=== PATIENT | female | born 1970 | race Caucasian/White ===

== ENCOUNTER 2023-03-22 11:40 | Emergency (ER) | payer OTHER, SELFPAY ==
[2023-03-22 11:48] VITALS: BP 159/107; PULSE 88; RESP 20; TEMP 36.8; O2SAT 98; BMI 39.2
--- NOTE | 2023-03-22 11:52 | XR_ITS ---
[address] [address] Patient Name: USMAN ZAMUDIO MRN: [id number] date: 1970 Sex: F Assigned Patient Location: ER Current Patient Location: Accession/Order Number: [id number] Exam Date: 03/22/2023 11:56 Report Date: 03/22/2023 12:27 At the request of: PRIMO HUNT Procedure: XR knee LT 3V EXAM: XR knee LT 3V INDICATION: fall. COMPARISON: None. TECHNIQUE: Left knee, 3 views FINDINGS: Changes of left knee arthroplasty with components in anatomic alignment. No periprosthetic fracture or findings of hardware loosening. Small suprapatellar joint effusion. Unremarkable soft tissues. IMPRESSION: No acute osseous abnormality. Intact left knee arthroplasty. Electronically authenticated by: MARCUS HICKMAN Date: 03/22/2023 12:27
--- NOTE | 2023-03-22 11:54 | ED.LOWEXI1 ---
HPI - Extremity Injury (Lower) General Chief Complaint: Extremity Injury, Lower Stated Complaint: LOWER EXTREMITY INJURY LEFT KNEE Time Seen by Provider: 03/22/23 11:48 Source: patient and family Mode of arrival: Wheelchair Limitations: no limitations History of Present Illness HPI Narrative: 52-year-old female presents for left knee pain she fell and her foot went out laterally. She has had a left knee replacement. She doesn't have pain in the hip or the ankle, just the knee. She didn't hit her head. This happened just before coming into the emergency department. Related Data Home Medications Medication Instructions Recorded Confirmed lisinopril 10 mg tablet 10 mg PO DAILY 03/22/23 03/22/23 Previous Rx's Medication Instructions Recorded acetaminophen 300 mg-codeine 30 mg 1 tab PO Q6H PRN pain #20 tabs 03/22/23 tablet ibuprofen 800 mg tablet 800 mg PO Q8H PRN pain #20 tabs 03/22/23 Allergies Allergy/AdvReac Type Severity Reaction Status Date / Time latex Allergy Intermediate Verified 03/22/23 11:51 Sulfa (Sulfonamide Allergy Intermediate Verified 03/22/23 11:51 Antibiotics) Review of Systems ROS Narrative A ten point review of systems is negative except as noted above. Exam Narrative Exam Narrative: Nurses note and vital signs reviewed and patient is not hypoxic. General: The patient appears well and in no apparent distress. Patient is resting comfortably on cart. Skin: Warm, dry, no pallor noted. There is no rash noted. Head: Normocephalic, atraumatic Eye: Normal conjunctiva, no drainage Ears, Nose, Mouth, and Throat: oral mucosa is moist. Nares patent. Cardiovascular: Regular Rate and Rhythm Respiratory: Patient is in no distress, no accessory muscle use, lungs are clear to auscultation, no wheezing, rales or rhonchi Back: non-tender GI: nontender Musculoskeletal: left ankle and hip are nontender. Left knee has old healed surgical scar. There is no obvious swelling. No bruising or erythema and the knee joint is stable. Neurological: A&O, normal speech Psychiatric: Cooperative Constitutional Vital Signs - 24 hr 03/22/23 11:48 Temperature 98.2 F Pulse Rate [Monitor] 88 Respiratory Rate 20 Blood Pressure [Left Arm] 159/107 H Pulse Oximetry 98 Oxygen Delivery Method Room Air Course Vital Signs Vital signs: Vital Signs Temperature 98.2 F 03/22/23 11:48 Pulse Rate 88 03/22/23 11:48 Respiratory Rate 20 03/22/23 11:48 Blood Pressure 159/107 H 03/22/23 11:48 Pulse Oximetry 98 03/22/23 11:48 Oxygen Delivery Method Room Air 03/22/23 11:48 Temperature 98.2 F 03/22/23 11:48 Pulse Rate 88 03/22/23 11:48 Respiratory Rate 20 03/22/23 11:48 Blood Pressure 159/107 H 03/22/23 11:48 Pulse Oximetry 98 03/22/23 11:48 Oxygen Delivery Method Room Air 03/22/23 11:48 MDM - Extremity Injury (Lower) MDM Narrative Medical decision making narrative: x-ray per radiologist shows no acute findings. Pedro Luis wrap applied and application checked by me and found be appropriate, she is neurovascularly intact. She is placed on Motrin and Tylenol 3 for pain. She has crutches at home and she hasn't established orthopedist. Treatment diagnosis and follow-up were discussed with the patient. Differential Diagnosis Differential diagnosis: Likely acute internal derangement of knee and other (knee sprain) Discharge Plan Discharge Chief Complaint: Extremity Injury, Lower Clinical Impression: Knee sprain Patient Disposition: Home, Self-Care Time of Disposition Decision: 12:53 Condition: Good Mode of Transportation: Private Vehicle Prescriptions / Home Meds: New acetaminophen-codeine 300-30 mg tablet 1 tab PO Q6H PRN (Reason: pain) Qty: 20 0RF ibuprofen 800 mg tablet 800 mg PO Q8H PRN (Reason: pain) Qty: 20 0RF No Action lisinopril 10 mg tablet 10 mg PO DAILY Instructions: Knee Sprain (ED) Stand Alone Forms: Portal Instructions Referrals: Physician,Non-Staff, MD [Primary Care Provider] - 1 week
== END 2023-03-22 13:13 | disposition home or self-care (01) ==
PROVIDERS: Emergency Provider Emergency Medicine
DX: S83.92XA Sprain of unspecified site of left knee, initial encounter (principal); W19.XXXA Unspecified fall, initial encounter; Z96.652 Presence of left artificial knee joint; Z79.899 Other long term (current) drug therapy
CPT/HCPCS: 73562; 99283